=== PATIENT | male | born 1940 | race Caucasian/White ===

== ENCOUNTER 2021-10-26 11:52 | Inpatient (IN) | payer OTHER ==
[~2021-10-26] VITALS: Ht 188 cm; Wt 103.6 kg
[~2021-10-26 11:52] MED LIST: ASPI81CH PO; ATOR40TA PO; BICALUTAMIDE50 MG PO; CHOL10002 PO; ISOMON20 PO; LISI20 PO; LUPRON DEPOT45 MG IM; METO25ER PO; NITR.4SL SL; TAMO10 PO
[2021-10-26 12:28] LABS: BASOPHILS ABSOLUTE AUTO 0.04 K/mm3 (0.00-0.23); BASOPHILS PERCENT AUTO 0 % (0-2); EOSINOPHILS ABSOLUTE AUTO 0.09 K/mm3 (0.00-0.68); EOSINOPHILS PERCENT AUTO 1 % (0-6); Hematocrit 38.9 % (37.0-53.0); Hemoglobin 12.7 g/dL (13.5-17.5); IMMATURE GRAN ABSOLUTE AUTO 0.13 K/mm3 (0.00-0.10); IMMATURE GRAN PERCENT AUTO 1 % (0-1); LYMPHOCYTES ABSOLUTE AUTO 0.86 K/mm3 (0.84-5.20); LYMPHOCYTES PERCENT AUTO 5 % (21-46); MONOCYTES ABSOLUTE AUTO 0.97 K/mm3 (0.16-1.47); MONOCYTES PERCENT AUTO 5 % (4-13); Mean Corpuscular HGB 29.3 pg (26.0-34.0); Mean Corpuscular HGB Conc 32.6 g/dL (31.5-36.5); Mean Corpuscular Volume 90 fL (80-100); Mean Platelet Volume 10.3 fL (9.1-12.4); NEUTROPHILS ABSOLUTE AUTO 16.72 K/mm3 (1.96-9.15); NEUTROPHILS PERCENT AUTO 89 % (41-73); Platelet Count 491 K/mm3 (150-400); RDW Coefficient Variation 16.5 % (11.7-14.2); RDW Standard Deviation 53.6 fL (35.1-46.3); Red Blood Cell Count 4.34 M/mm3 (4.30-5.90); White Blood Cell Count 18.81 K/mm3 (4.00-11.30)
[2021-10-26 13:31] LABS: International Normalized Ratio 1.1; Prothrombin Time Results 11.5 Sec (9.7-11.5)
--- NOTE | 2021-10-26 14:26 | NUR ---
ED Palliative Care Consult Spoke with Dr Miranda and discussed case. Pt to the ED with Bowel Obstruction. CT results are worriesome for colon cancer with mets to retroperitoneum and liver. Surgery has been consulted with plan for immediate surgery. Accompanied to Ruth to Pt's room. Dr Miranda discusses findings including plan for surgery and concerns for cancer. Dr Miranda anwers questions. Spouse into Pt's room and Dr Miranda discusses findings and plan with spouse. This RN remained behind and answered questions further and offered supportive visit. Pt reports no children and having a brother who lives out of states. Pt and spouse agree for continued Palliative Care visits. Ended visit to allow Pt and spouse to process information. Palliative Care will F/U for supportive and therapeutic visits.
[2021-10-26 15:25] LABS: Albumin, Blood 3.3 g/dL (3.4-5.0); Albumin/Globulin Ratio 0.8 (0.8-1.8); Bilirubin, Total 0.9 mg/dL (0.1-1.0); Bun/Creatinine Ratio 16.3 (12.0-20.0); Calcium, Blood 9.9 mg/dL (8.5-10.1); Creatinine, Blood 2.15 mg/dL (0.60-1.20); Globulin, Blood 4.1 g/dL (2.2-4.0); Potassium, Blood 5.6 mmol/L (3.5-5.5); Total Protein, Blood 7.4 g/dL (6.4-8.2)
--- NOTE | 2021-10-26 15:28 | NUR ---
History, Chart, Medications and Allergies reviewed before start of procedure.Patient confirms NPO status and agrees with scheduled surgery. Pre-Op teaching done. Pt verbalizes understanding. Patient States Post-Procedure ride home has been arranged.
--- NOTE | 2021-10-26 16:30 | NUR ---
10/26/21 1630 Jodi Peoples BARRIGA CATHETER PLACED INTRAOPERATIVELY BY RN. PATIENT TOLERATED WELL.
[2021-10-27 05:36] LABS: Hematocrit 35.2 % (37.0-53.0); Hemoglobin 11.2 g/dL (13.5-17.5); Mean Corpuscular HGB 29.2 pg (26.0-34.0); Mean Corpuscular HGB Conc 31.8 g/dL (31.5-36.5); Mean Corpuscular Volume 92 fL (80-100); Platelet Count 470 K/mm3 (150-400); RDW Coefficient Variation 16.8 % (11.7-14.2); RDW Standard Deviation 56.1 fL (35.1-46.3); Red Blood Cell Count 3.84 M/mm3 (4.30-5.90); White Blood Cell Count 13.61 K/mm3 (4.00-11.30)
[2021-10-27 05:56] LABS: Albumin, Blood 2.8 g/dL (3.4-5.0); Albumin/Globulin Ratio 0.8 (0.8-1.8); Bilirubin, Total 0.9 mg/dL (0.1-1.0); Bun/Creatinine Ratio 17.7 (12.0-20.0); Calcium, Blood 8.9 mg/dL (8.5-10.1); Creatinine, Blood 2.48 mg/dL (0.60-1.20); Globulin, Blood 3.7 g/dL (2.2-4.0); Potassium, Blood 5.5 mmol/L (3.5-5.5); Total Protein, Blood 6.5 g/dL (6.4-8.2)
--- NOTE | 2021-10-27 05:58 | NUR ---
SUMMARY PT ARRIVED TO FLOOR FEELIONG NAUSEATED. PT TX PER EMAR WITH RELIEF. PT CHAINER HAS PROVIDED GOOD RELIEF FOR PT. PT HAS BEEN SLEEPING WELL T/OUT SHIFT.P PT CURRENTLY SLEEPING IN NO DISTRESS. CALL LIGHT IN REACH
--- NOTE | 2021-10-27 11:49 | NUR ---
Supportive visit this AM. Pt resting in bed and reports current regimen is managing his pain. Spouse Bethanie at bedside. Reviewed plan of care and answered questions. Pt and spouse express appreciation and report no new concerns at this time. Palliative Care will remain available.
[2021-10-28 04:42] LABS: Hematocrit 32.3 % (37.0-53.0); Hemoglobin 10.2 g/dL (13.5-17.5); Mean Corpuscular HGB 29.3 pg (26.0-34.0); Mean Corpuscular HGB Conc 31.6 g/dL (31.5-36.5); Mean Corpuscular Volume 93 fL (80-100); Mean Platelet Volume 10.1 fL (9.1-12.4); Platelet Count 382 K/mm3 (150-400); RDW Coefficient Variation 16.8 % (11.7-14.2); RDW Standard Deviation 57.8 fL (35.1-46.3); Red Blood Cell Count 3.48 M/mm3 (4.30-5.90); White Blood Cell Count 10.78 K/mm3 (4.00-11.30)
[2021-10-28 05:05] LABS: BAND PERCENT MAN 3 % (0-8); BASOPHILS PERCENT MAN 0 % (0-2); EOSINOPHILS PERCENT MAN 0 % (0-6); LYMPHOCYTES ABSOLUTE MAN 0.75 K/mm3 (0.84-5.20); LYMPHOCYTES PERCENT MAN 7 % (21-46); MONOCYTES PERCENT MAN 13 % (4-13); NEUTROPHILS ABSOLUTE MAN 8.62 K/mm3 (1.96-9.15); SEG NEUTROPHILS PERCENT MAN 77 % (41-73); TOTAL CELLS COUNTED 100
--- NOTE | 2021-10-28 05:15 | NUR ---
ASSUMED CARE OF PT AT 1900. NO ACUTE CHANGES THIS SHIFT. PT IS ALERT AND ORIENTED, IS A MOD ASSIST TO BSC AND CALLS APPROPRIATELY. PT ON DRAFTER COMMERCIAL FENTANYL, PAIN IS WELL CONTROLLED. COMPLAINS OF NAUSEA, VSS, IS ABLE TO SLEEP 7+ HOURS THIS SHIFT. WILL CONTINUE TO MONITOR AND GIVE HANDOFF REPORT TO DAYSHIFT RN
[2021-10-28 05:18] LABS: Bun/Creatinine Ratio 21.3 (12.0-20.0); Calcium, Blood 8.9 mg/dL (8.5-10.1); Creatinine, Blood 2.67 mg/dL (0.60-1.20); Potassium, Blood 4.9 mmol/L (3.5-5.5)
[2021-10-28 14:33] LABS: Source, Urine Clean Catch
--- NOTE | 2021-10-28 14:39 | NUR ---
SHIFT SUMMARY: POD 2 COLECTOMY PATIENT IS A&OX4. VS ARE WNL AND IS ON RA. PATIENT DENIES PAIN AT THIS TIME BUT HAS PO PAIN MEDICATIONS PRN. HAM DRESSING DOWN ABD MIDLINE IS C/D/I WITH ABD BINDER ON TOP. BOWEL TONES ARE HYPOACTIVE. HE IS TOLERATING HIS CLEAR LIQUID DIET. HE IS A SBA WITH FWW AND GAIT BELT. CALLS APPROPRIATELY. CALL LIGHT WITHIN REACH. THE PLAN IS TO CONTINUE PAIN MANAGEMENT AND INCREASE AMBULATION.
[2021-10-28 16:53] LABS: Bilirubin, Urine Neg (Neg); Blood, Urine 4+ (Neg); Glucose Qualitative, Urine 1+ (Neg); Ketones, Urine Neg (Neg); Leukocyte Esterase, Urine 1+ (Neg); Nitrite, Urine Neg (Neg); Protein, Urine 2+ (Neg); Specific Gravity, Urine 1.025 (1.003-1.022); Urobilinogen, Urine NORM (Normal)
[2021-10-28 17:47] LABS: Appearance, Urine Hazy (Clear); Color, Urine Yellow (P-Yellow)
[2021-10-28 17:48] LABS: Bacteria Many /hpf; Squamous Epithelial Cells Few /hpf (Few); Uric Acid Crystals Many /hpf
[2021-10-29 04:17] LABS: BASOPHILS ABSOLUTE AUTO 0.02 K/mm3 (0.00-0.23); BASOPHILS PERCENT AUTO 0 % (0-2); EOSINOPHILS ABSOLUTE AUTO 0.19 K/mm3 (0.00-0.68); EOSINOPHILS PERCENT AUTO 2 % (0-6); Hematocrit 32.2 % (37.0-53.0); Hemoglobin 10.4 g/dL (13.5-17.5); IMMATURE GRAN ABSOLUTE AUTO 0.05 K/mm3 (0.00-0.10); IMMATURE GRAN PERCENT AUTO 0 % (0-1); LYMPHOCYTES ABSOLUTE AUTO 0.58 K/mm3 (0.84-5.20); LYMPHOCYTES PERCENT AUTO 5 % (21-46); MONOCYTES PERCENT AUTO 10 % (4-13); Mean Corpuscular HGB 29.5 pg (26.0-34.0); Mean Corpuscular HGB Conc 32.3 g/dL (31.5-36.5); Mean Corpuscular Volume 91 fL (80-100); Mean Platelet Volume 10.1 fL (9.1-12.4); NEUTROPHILS ABSOLUTE AUTO 10.69 K/mm3 (1.96-9.15); NEUTROPHILS PERCENT AUTO 83 % (41-73); Platelet Count 395 K/mm3 (150-400); RDW Coefficient Variation 16.7 % (11.7-14.2); Red Blood Cell Count 3.53 M/mm3 (4.30-5.90); White Blood Cell Count 12.83 K/mm3 (4.00-11.30)
[2021-10-29 04:36] LABS: Albumin, Blood 2.6 g/dL (3.4-5.0); Albumin/Globulin Ratio 0.6 (0.8-1.8); Bilirubin, Total 0.6 mg/dL (0.1-1.0); Bun/Creatinine Ratio 30.2 (12.0-20.0); Calcium, Blood 9.1 mg/dL (8.5-10.1); Creatinine, Blood 1.59 mg/dL (0.60-1.20); Globulin, Blood 4.1 g/dL (2.2-4.0); Potassium, Blood 4.1 mmol/L (3.5-5.5); Total Protein, Blood 6.7 g/dL (6.4-8.2)
--- NOTE | 2021-10-29 04:36 | NUR ---
ASSUMED CARE OF PT AT 1900. PT IS A&OX4, 1PA TO BR AND CALLS APPROPRIATELY. POST OP DAY 3 FOR COLECTOMY. ABD MIDLINE HAM DRESSING HAS SCANT ABOUNTS OF DRAINAGE. PT HAS COMPLAINTS OF NAUSEA AND VOMITING, HAS NOT HAD A BM FOR SEVERAL DAYS. HAS PRN PHENEGRAN AND REGLAN FOR NAUSEA. CLEAR DIET ORDERED. BOWEL TONES ARE FAINT AND HYPOACTIVE. PT REPORTS PASSAGE OF FLATUS. SLEEPS 7+ HOURS THIS SHIFT. NO COMPLAINTS OF PAIN. CALL LIGHT WITHIN REACH, BED LOW AND LOCKED.
--- NOTE | 2021-10-29 13:44 | NUR ---
Pt resting in bed with his eyes closed. Pt appears comfortable with no S/S of distress at this time. Pt left undisturbed at this time. Spoke with Dr Ojeda and reviewed plan of care. Plan for Pt to F/U outpatient with oncology. Palliative Care will remain available.
--- NOTE | 2021-10-29 17:38 | NUR ---
SHIFT SUMMARY POD 3 COLECTOMY, MIDLINE HAM IN PLACE WITH SMALL DRAINAGE PRESENT, INTACT W. GOOD SUCTION. PATIENT REPORTS MILD PAIN TO ABDOMEN, MEDICATED X1 W/ FENTANYL D/T CONTINUED N/V. REPORTED NAUSEA THROUGHOUT SHIFT, VOMITTED LARGE AMOUNTS A FEW TIMES. MEDICATED PER EMAR. PATIENT AMBULATED TO BR & UP TO CHAIR X2 THIS SHIFT, TOLERATED WELL. MINIMAL PO INTAKE, CLEARS. PATIENT DID HAVE 2 SMALL, LOOSE BM'S TODAY BUT CONTINUES TO HAVE NAUSEA & VOMITTING. IV FLUIDS PER EMAR. CALLS APPROPRIATELY, WILL REPORT TO ONCOMING RN.
--- NOTE | 2021-10-29 22:58 | NUR ---
PT HAS BEEN A&OX4 FOR ME. COMPLAINS OF INTERMITENT NAUSEA, NO EMISES AT THIS TIME. DECLINED OFFERE MEDICATIONS FOR NAUSEA AT THIS TIME, STATING "IT COMES AND GOES". WILL MONITOR. EVEN STOOL SOFTENERS HELD DUE TO NAUSEA, WILL MONITOR. VSS. DRESSING ON ABDOMEN IS CLEAN AND INTACT WITH 2 PEA SIZED AREAS OF OLD DRAINAGE NOTED. PUMP LIGHT IN GREEN INDICATING IT IS SUCTIONING AND DRESSING ON ABOMDEN IS COMPRESSED. WILL CONTINUE TO MONITOR. CALL LIGHT IN REACH.
--- NOTE | 2021-10-30 05:52 | NUR ---
PT REPORTED FEELING BETTER AFTER HAVING LARGE LIQUID BM EARLIER THIS SHIFT. SHE DID HAVE SMALL AMOUNT OF FORMED BM WITH LIQUID STOOL PT ACCEPTED ZOFRAN WELL FOR NAUSEA. PT IS NOW RESTING IN BED WITH EYES CLOSED. CALL LIGHT IN REACH.
--- NOTE | 2021-10-30 10:21 | NUR ---
TRANSFER OF CARE PATIENT ALERT AND ORIENTED. INDEPENDENT IN ROOM. TOLERATING CLEAR LIQUIDS WITH OCCASIONAL NAUSEA. ABD TENDER AND MOD DISTENDED. FREQUENT LIQUID BM. DENIES NEED FOR ABD PAIN AT THIS TIME. SALINE LOCKED. MIDLINE HAM DRESSING INTACT WITH SCANT OLD DRAINAGE. REPORT GIVEN TO RN ASSUMING CARE.
--- NOTE | 2021-10-30 10:48 | NUR ---
ASSUMED CARE OF PT FROM GUERO Singh RN. PT SLEEPING. DOES NOT APPEAR TO BE IN ANY DISTRESS AT THIS TIME.
--- NOTE | 2021-10-30 17:39 | NUR ---
SUMMARY NO ACUTE CHANGES SINCE ASSUMING CARE OF PT. PT SLEPT MOST OF DAY. NOW AWAKE AND A&OX4. TOLERATED CLEAR LIQUIDS EARLIER IN DAY, ADVANCED TO FULL LIQUIDS FOR DINNER; HAS TRAY NOW. AMBULATED INDEPENDENTLY TO RESTROOM AND BACK. HAVING BROWN LOOSE BMS AND VOIDING. DENIES NEED FOR NAUSEA MEDS. CALL LIGHT IN REACH.
[2021-10-31 04:36] LABS: BASOPHILS ABSOLUTE AUTO 0.05 K/mm3 (0.00-0.23); BASOPHILS PERCENT AUTO 1 % (0-2); EOSINOPHILS ABSOLUTE AUTO 0.67 K/mm3 (0.00-0.68); EOSINOPHILS PERCENT AUTO 7 % (0-6); Hematocrit 29.1 % (37.0-53.0); Hemoglobin 8.9 g/dL (13.5-17.5); IMMATURE GRAN ABSOLUTE AUTO 0.08 K/mm3 (0.00-0.10); IMMATURE GRAN PERCENT AUTO 1 % (0-1); LYMPHOCYTES ABSOLUTE AUTO 0.79 K/mm3 (0.84-5.20); LYMPHOCYTES PERCENT AUTO 8 % (21-46); MONOCYTES ABSOLUTE AUTO 1.24 K/mm3 (0.16-1.47); MONOCYTES PERCENT AUTO 12 % (4-13); Mean Corpuscular HGB 28.6 pg (26.0-34.0); Mean Corpuscular HGB Conc 30.6 g/dL (31.5-36.5); Mean Corpuscular Volume 94 fL (80-100); Mean Platelet Volume 10.1 fL (9.1-12.4); NEUTROPHILS ABSOLUTE AUTO 7.34 K/mm3 (1.96-9.15); NEUTROPHILS PERCENT AUTO 72 % (41-73); Platelet Count 316 K/mm3 (150-400); RDW Coefficient Variation 16.3 % (11.7-14.2); Red Blood Cell Count 3.11 M/mm3 (4.30-5.90); White Blood Cell Count 10.17 K/mm3 (4.00-11.30)
[2021-10-31 05:07] LABS: Bun/Creatinine Ratio 27.1 (12.0-20.0); Calcium, Blood 8.5 mg/dL (8.5-10.1); Creatinine, Blood 1.18 mg/dL (0.60-1.20); Potassium, Blood 3.9 mmol/L (3.5-5.5)
--- NOTE | 2021-10-31 17:59 | NUR ---
SHIFT SUMMARY PT HAS DONE WELL TODAY. TOLERATING FULL LQ's WELL SO ADVANCED TO REGULAR DINNER. WAS VERY APPRECIATIVE & TOLERATED WELL. AMBULATED IN HALLWAYS, UP IN ROOM, PASSING GAS. DISCUSSED IMPORTANCE OF STOOL SOFTNERS & PT AGREEABLE TO TAKE THIS EVENING.
--- NOTE | 2021-11-01 00:29 | NUR ---
ASSUMED CARE PT RESTING IN BED, AWOKE EASILY, DENIES FURTHER NEEDS, IV ABX STARTED, CALL LIGHT IN REACH.
--- NOTE | 2021-11-01 05:05 | NUR ---
SHIFT SUMMARY PT RESTING WELL THIS AM. AAOX4. DENIES DISCOMFORT/NAUSEA SINCE ASSUMING CARE AT MIDNIGHT. INDEPENDENT IN ROOM. TOLERATING DIET WELL. PT REPORTING MULTIPLE BMs YESTARDAY. IV ABX PER ORDERS. NO ACUTE CHANGES THIS AM. PT CURRENTLY RESTING IN BED WITH CALL LIGHT IN REACH.
[2021-11-01] MEDS ORDERED: ACET325 PO (09:55)
[2021-11-01] MEDS ORDERED: Norco 5-325 Ta1 EACH PO (09:56)
[2021-11-01] MEDS ORDERED: DOCU100 PO (09:56)
[2021-11-01] MEDS ORDERED: Calcium Carbon500 MG PO (09:56)
[2021-11-01] MEDS ORDERED: PROBIOTIC1 EA13 PO (09:57)
[2021-11-01] MEDS ORDERED: AMOCLA500 PO (09:58)
--- NOTE | 2021-11-01 12:00 | NUR ---
DISCHARGE ESCORTED OUT VIA W/C. TOLERATING REG DIET, HAVING SOFT BM's, PASSING GAS, AMBULATING STRONGLY, MED[facility] FA[facility], ( WELL HARD SCRIPT GIVEN TO SPOUSE). DISCUSSED DC PLANS w/ DR WEI & PT/DC INSTRUCTIONS UPDATED.
== END 2021-11-01 12:00 | disposition home or self-care (01) | DRG 329 ==
LOC: ER 11:52 → SURS 15:04 → ER 15:14 → SURS 20:25
PROVIDERS: Emergency Medicine; Internal Medicine; Surgery; ADMIT Internal Medicine
PROC: 0DBK0ZZ Excision of Ascending Colon, Open Approach (ICD-10-PCS; 2021-10-26)
PROC: 0DBL0ZZ Excision of Transverse Colon, Open Approach (ICD-10-PCS; 2021-10-26)
PROC: 0DTF0ZZ Resection of Right Large Intestine, Open Approach (ICD-10-PCS; principal; 2021-10-26 15:30)
DX: C18.9 Malignant neoplasm of colon, unspecified (principal); A41.9 Sepsis, unspecified organism; R65.20 Severe sepsis without septic shock; N17.9 Acute kidney failure, unspecified; K55.9 Vascular disorder of intestine, unspecified; C78.7 Secondary malignant neoplasm of liver and intrahepatic bile duct; N40.0 Benign prostatic hyperplasia without lower urinary tract symptoms; I25.10 Atherosclerotic heart disease of native coronary artery without angina pectoris; I10 Essential (primary) hypertension; R63.4 Abnormal weight loss; K59.00 Constipation, unspecified; K63.89 Other specified diseases of intestine; E78.00 Pure hypercholesterolemia, unspecified; Z79.82 Long term (current) use of aspirin; Z79.811 Long term (current) use of aromatase inhibitors; Z79.899 Other long term (current) drug therapy; Z90.49 Acquired absence of other specified parts of digestive tract; Z95.5 Presence of coronary angioplasty implant and graft; Z98.890 Other specified postprocedural states; Z87.891 Personal history of nicotine dependence; Z90.6 Acquired absence of other parts of urinary tract; Z68.28 Body mass index [BMI] 28.0-28.9, adult; Z85.46 Personal history of malignant neoplasm of prostate
CPT/HCPCS: 36415; 74177; 76770; 80048; 80053; 81001; 82378; 83690; 85025; 85027; 85610; 85730; 86850; 86900; 86901; 87086; 88309; 93005; 93010; 96374-59; 97110; 97112; 97116; 97162; 97530; 99285-25; A9270; C9113; J0330; J1100; J1650; J2250; J2370; J2405; J2543; J2550; J2704; J2765; J3010; J7030; J7040; J7120; Q9967

== ENCOUNTER 2021-11-18 08:09 | Day surgery (SDC) | payer OTHER ==
[~2021-11-18] VITALS: Ht 185.4 cm; Wt 99.8 kg
[~2021-11-18 08:09] MED LIST changes: +ACET325 PO; +AMOCLA500 PO; +Calcium Carbon500 MG PO; +DOCU100 PO; +Norco 5-325 Ta1 EACH PO; +PROBIOTIC1 EA13 PO
[2021-11-18] MEDS ORDERED: RANO500T PO (08:52)
[2021-11-18] MEDS ORDERED: ATOR20 PO (08:52)
--- NOTE | 2021-11-18 11:31 | NUR ---
ASSUMED CARE, REPORT FROM NORMA Mcgovern RN
--- NOTE | 2021-11-18 12:02 | NUR ---
Dressing to procedure site clean, dry, intact with no visible drainage, swelling, erythema or bruising noted. Discharge instructions reviewed with patient. Patient verbalizes understanding. Copy given to patient to take home. Discharged via wheelchair to private car for ride home.
== END 2021-11-18 12:03 | disposition home or self-care (01) ==
LOC: ORSCMMR 08:09 → ORD 09:45 → ORSCMMR 10:00
PROVIDERS: Surgery
PROC: 05HM33Z Insertion of Infusion Device into Right Internal Jugular Vein, Percutaneous Approach (ICD-10-PCS; principal; 2021-11-18 10:00)
PROC: B543ZZA Ultrasonography of Right Jugular Veins, Guidance (ICD-10-PCS; principal; 2021-11-18 10:00)
DX: C18.2 Malignant neoplasm of ascending colon (principal); I25.10 Atherosclerotic heart disease of native coronary artery without angina pectoris; Z79.02 Long term (current) use of antithrombotics/antiplatelets
CPT/HCPCS: 77001; C1788; J0690; J1100; J1642; J2405; J2704; J2795; J3010; J7120

== ENCOUNTER 2022-09-12 13:18 | Emergency (ER) | payer OTHER ==
[~2022-09-12] VITALS: Ht 182.9 cm; Wt 93.4 kg
[~2022-09-12 13:18] MED LIST changes: +ATOR20 PO; +RANO500T PO
[2022-09-12] MEDS ORDERED: TRAM50 PO (15:56)
[2022-09-12 16:45] VITALS: BP 154/67
== END 2022-09-12 16:45 | disposition home or self-care (01) ==
LOC: ER 13:18
DX: S82.092A Other fracture of left patella, initial encounter for closed fracture (principal); S22.42XA Multiple fractures of ribs, left side, initial encounter for closed fracture; S51.012A Laceration without foreign body of left elbow, initial encounter; W18.39XA Other fall on same level, initial encounter; I11.9 Hypertensive heart disease without heart failure; Z23 Encounter for immunization; Z79.899 Other long term (current) drug therapy; Z79.82 Long term (current) use of aspirin
CPT/HCPCS: 71101; 72125; 73562-LT; 90714; A9270

== ENCOUNTER 2022-11-24 09:14 | Emergency (ER) | payer OTHER ==
[~2022-11-24] VITALS: Ht 185.4 cm; Wt 90.7 kg
[~2022-11-24 09:14] MED LIST changes: +TRAM50 PO
[2022-11-24 09:22] VITALS: BP 130/71
== END 2022-11-24 11:09 | disposition home or self-care (01) ==
LOC: ER 09:14
DX: S32.011A Stable burst fracture of first lumbar vertebra, initial encounter for closed fracture (principal); S32.029A Unspecified fracture of second lumbar vertebra, initial encounter for closed fracture; S32.039A Unspecified fracture of third lumbar vertebra, initial encounter for closed fracture; S01.311A Laceration without foreign body of right ear, initial encounter; S80.211A Abrasion, right knee, initial encounter; C18.9 Malignant neoplasm of colon, unspecified; I10 Essential (primary) hypertension; Z23 Encounter for immunization; Z88.8 Allergy status to other drugs, medicaments and biological substances; Z79.82 Long term (current) use of aspirin; Z79.899 Other long term (current) drug therapy; Z87.891 Personal history of nicotine dependence; W18.30XA Fall on same level, unspecified, initial encounter; Y92.002 Bathroom of unspecified non-institutional (private) residence as the place of occurrence of the external cause
CPT/HCPCS: 72100; 90714; 90715

== ENCOUNTER 2022-11-27 09:40 | Emergency (ER) | payer OTHER ==
[~2022-11-27] VITALS: Ht 182.9 cm; Wt 90.7 kg
[2022-11-27] MEDS ORDERED: Percocet 5-3251 EACH PO (11:40)
[2022-11-27] MEDS ORDERED: Robaxin750 MG PO (11:40)
[2022-11-27 12:32] VITALS: BP 145/68
[2022-12-10] MEDS ORDERED: OXYACE7.5T PO (14:03)
[2022-12-10] MEDS ORDERED: LIDO700A20 TOP (14:03)
== END 2022-11-27 12:46 | disposition home or self-care (01) ==
LOC: ER 09:40
DX: S32.030D Wedge compression fracture of third lumbar vertebra, subsequent encounter for fracture with routine healing (principal); C19 Malignant neoplasm of rectosigmoid junction; C78.7 Secondary malignant neoplasm of liver and intrahepatic bile duct; I10 Essential (primary) hypertension; Z85.46 Personal history of malignant neoplasm of prostate; Z88.8 Allergy status to other drugs, medicaments and biological substances; Z79.899 Other long term (current) drug therapy; Z79.82 Long term (current) use of aspirin; W19.XXXD Unspecified fall, subsequent encounter; Z95.5 Presence of coronary angioplasty implant and graft; Z87.891 Personal history of nicotine dependence
CPT/HCPCS: 99283-25; A9270

== ENCOUNTER 2023-02-11 04:46 | Inpatient (IN) | payer OTHER ==
[~2023-02-11] VITALS: Ht 208.3 cm; Wt 77.1 kg
[~2023-02-11 04:46] MED LIST changes: +LIDO700A20 TOP; +OXYACE7.5T PO; +Percocet 5-3251 EACH PO; +Robaxin750 MG PO
[2023-02-11 06:20] LABS: Hematocrit 40.2 % (37.0-53.0); Hemoglobin 12.7 g/dL (13.5-17.5); Mean Corpuscular HGB 31.7 pg (26.0-34.0); Mean Corpuscular HGB Conc 31.6 g/dL (31.5-36.5); Mean Corpuscular Volume 100 fL (80-100); Platelet Count 539 K/mm3 (150-400); RDW Coefficient Variation 16.5 % (11.7-14.2); Red Blood Cell Count 4.01 M/mm3 (4.30-5.90); White Blood Cell Count 16.52 K/mm3 (4.00-11.30)
[2023-02-11 06:47] LABS: Albumin, Blood 3.3 g/dL (3.4-5.0); Albumin/Globulin Ratio 0.8 (0.8-1.8); Bilirubin, Total 0.5 mg/dL (0.1-1.0); Bun/Creatinine Ratio 9.4 (12.0-20.0); Calcium, Blood 9.4 mg/dL (8.5-10.1); Creatinine, Blood 11.1 mg/dL (0.60-1.20); Globulin, Blood 4.2 g/dL (2.2-4.0); Potassium, Blood 4.2 mmol/L (3.5-5.5); Total Protein, Blood 7.5 g/dL (6.4-8.2)
[2023-02-11 06:55] LABS: BAND PERCENT MAN 10 % (0-8); BASOPHILS PERCENT MAN 0 % (0-2); EOSINOPHILS PERCENT MAN 0 % (0-6); LYMPHOCYTES ABSOLUTE MAN 1.32 K/mm3 (0.84-5.20); LYMPHOCYTES PERCENT MAN 8 % (21-46); MONOCYTES ABSOLUTE MAN 0.66 K/mm3 (0.16-1.47); MONOCYTES PERCENT MAN 4 % (4-13); NEUTROPHILS ABSOLUTE MAN 14.53 K/mm3 (1.96-9.15); SEG NEUTROPHILS PERCENT MAN 78 % (41-73); TOTAL CELLS COUNTED 100
[2023-02-11 08:34] LABS: Albumin, Blood 3.3 g/dL (3.4-5.0); Anion Gap 27 mmol/L (6-16); Blood Urea Nitrogen 105 mg/dL (8-24); Bun/Creatinine Ratio 9.4 (12.0-20.0); CO2, Blood 5 mmol/L (21-32); Calcium, Blood 9.3 mg/dL (8.5-10.1); Chloride, Blood 102 mmol/L (98-108); Glomerular Filtration Rate 4 (60-); Glucose, Blood 228 mg/dL (70-99); Potassium, Blood 4.2 mmol/L (3.5-5.5); Sodium, Blood 134 mmol/L (136-145)
[2023-02-11 08:48] LABS: Phosphorus, Blood 12.7 mg/dL (2.5-4.9)
[2023-02-11 09:00] VITALS: BP 99/87
--- NOTE | 2023-02-11 15:34 | NUR ---
Pt came to ED via EMS this am. He has a history of colon cancer, and has been receiving treatment from Dr. Thompson. Per , the pt's condition has declined drastically over the past week. He has an L3 fracture from a recent fall, and has been essentially bedbound for the past week per . Pt appears to be transitioning upon arrival, and after some discussion by with pt's brother and sister in law, the decision was made to place the pt on comfort care. Pt's Bethanie states she has a hx of CVA and a TBI. She has trouble forming words and/or sentences, and relies some on pt's brother Nic and sis-in-law. Pt appears much more comfortable after a dose of roxanol and lorazepam this am. He is no longer attempting to climb out of bed, swing his legs out, or pull at lines. Palliative Care to remain involved.
--- NOTE | 2023-02-11 18:48 | NUR ---
PT ADMITTED FROM ED 1500, PT COMATOSE, UNRESPONSIVE. MOTTLED LEGS, CYANOTIC NAILBEDS, COLD FEET, MATTRESS PACKER 6SEC. RR 28, APPEARS HAVING AIR HUNGER. WILL MEDICATE. AT BEDSIDE, SUPPORTIVE IN CARE. CALL LIGHT GIVEN TO . AWAITING FAMILY FROM OUT OF TOWN COMING TO SEE PT. SHOULD ARRIVE CLOSE TO 8PM.
== END 2023-02-11 22:33 | DRG 682 ==
LOC: ER 04:46 → ERHOLD 07:43 → MEDS 15:03
PROVIDERS: Student in an Organized Health Care Education/Training Program; ADMIT Internal Medicine
DX: N17.9 Acute kidney failure, unspecified (principal); E43 Unspecified severe protein-calorie malnutrition; E87.20 Acidosis, unspecified; E87.1 Hypo-osmolality and hyponatremia; C19 Malignant neoplasm of rectosigmoid junction; C78.7 Secondary malignant neoplasm of liver and intrahepatic bile duct; Z68.1 Body mass index [BMI] 19.9 or less, adult; Z51.5 Encounter for palliative care; Z66 Do not resuscitate; E83.39 Other disorders of phosphorus metabolism; E88.09 Other disorders of plasma-protein metabolism, not elsewhere classified; D64.9 Anemia, unspecified; E86.0 Dehydration; D72.829 Elevated white blood cell count, unspecified; I12.9 Hypertensive chronic kidney disease with stage 1 through stage 4 chronic kidney disease, or unspecified chronic kidney disease; N18.9 Chronic kidney disease, unspecified; I25.10 Atherosclerotic heart disease of native coronary artery without angina pectoris; I95.9 Hypotension, unspecified; Z85.46 Personal history of malignant neoplasm of prostate; Z92.3 Personal history of irradiation; Z95.5 Presence of coronary angioplasty implant and graft; Z90.49 Acquired absence of other specified parts of digestive tract; Z87.891 Personal history of nicotine dependence; Z74.01 Bed confinement status; Z88.8 Allergy status to other drugs, medicaments and biological substances; Z79.82 Long term (current) use of aspirin
CPT/HCPCS: 71045; 80053; 80069; 85025; 93005; 93010; 96361; 96374; 96375; 99285-25; A9270; J2060; J2270; J2405; J7030; J7070